=== PATIENT | male | born 1985 | race Caucasian/White ===

== ENCOUNTER 2018-01-04 19:59 | Emergency (ER) | payer SELFPAY ==
[2018-01-04] MEDS ORDERED: SODIUM CHLORIDE 0.9% 1000ML 1,000 ML IVS ONE (20:00)
[2018-01-04] MEDS ORDERED: SULFA/TRIMETH 800/160 (DS) TAB 1 EA TAB PO ONE (20:41)
[2018-01-04] MEDS ORDERED: TETANUS,DIPHTHERIA,PERTUSSIS 1 EA SYG IM ONE (20:41)
--- NOTE | 2018-01-04 20:45 | ED.PDOC ---
History of Present Illness - General Chief Complaint: Trauma Stated Complaint: LFA laceration Time Seen by Provider: 01/04/18 20:17 Source: patient Exam Limitations: no limitations - History of Present Illness Initial Comments: The patient is a 32-year-old male presenting to the emergency room secondary to lacerations longitudinally to the palmar aspect of his left forearm. He was working on his vehicle with his knife when it came down. The knife cut his forearm as he tried to drag his forearm out and cut him again. He has 2 lacerations: Approximately 8 inches in length. these do come through the scan but I cannot find that the knife actually went into any deeper tissue. He does appear to be neurovascularly intact. Radial artery pulses strong. Coloration of the hand is strong. Muscular function appears to be intact. Estimated blood loss per time of arrival was probably around 100 cc. He arrived with EMS with a pressure dressing. The incident occurred probably 45 minutes prior to arrival. Timing/Duration: 1/2 hour Severity: moderate Improving Factors: nothing Worsening Factors: nothing Associated Symptoms: denies symptoms Allergies/Adverse Reactions: Allergies NO KNOWN ALLERGY Allergy (Verified 01/04/18 20:29) Home Medications: Ambulatory Orders Sulfa/Trimeth 800/160 (Ds) Tab [Bactrim DS Tab] 1 ea PO DAILY #7 tab 01/04/18 Review of Systems - Review of Systems Constitutional: States: no symptoms reported EENTM: States: no symptoms reported Respiratory: States: no symptoms reported Cardiology: States: no symptoms reported Gastrointestinal/Abdominal: States: no symptoms reported Genitourinary: States: no symptoms reported Musculoskeletal: States: no symptoms reported Skin: States: see HPI Neurological: States: no symptoms reported Endocrine: States: no symptoms reported Past Medical History (General) - Patient Medical History Hx Seizures: No Hx Stroke: No Hx Dementia: No Hx Asthma: No Hx of COPD: No Hx Cardiac Disorders: No Hx Congestive Heart Failure: No Hx Pacemaker: No Hx Hypertension: No Hx Thyroid Disease: No Hx Diabetes: No Hx Gastroesophageal Reflux: No Hx Renal Disease: No Hx Cancer: No Hx of HIV: No Hx Hepatitis C: No Hx MRSA: No Surgical History: no surgical history - Vaccination History Hx Tetanus, Diphtheria Vaccination: No - Social History Hx Tobacco Use: No Hx Alcohol Use: No Hx Substance Use: No Hx Substance Use Treatment: No Hx Depression: No Family Medical History - Family History Father Living Status: Still Living Physical Exam - Physical Exam General Appearance: Alert, Other - he is diaphoretic. Eye Exam: bilateral normal Ears, Nose, Throat: hearing grossly normal, normal ENT inspection, normal pharynx Neck: full range of motion, supple Respiratory: lungs clear, normal breath sounds, no respiratory distress, no accessory muscle use Cardiovascular/Chest: normal peripheral pulses, regular rate, rhythm, no edema Peripheral Pulses: radial,right: 2+, radial,left: 2+, dorsalis pedis,right: 2+, dorsalis pedis,left: 2+ Gastrointestinal/Abdominal: non tender, soft Rectal Exam: deferred Back Exam: no CVA tenderness Extremity: normal range of motion, no pedal edema, normal capillary refill, other - see history of present illness Neurologic: mental health case manager II-XII nml as tested, no motor/sensory deficits, alert, normal mood/affect, oriented x 3 Skin Exam: normal color - lacerations as per history of present illness. Comments: Vital Signs - 24 hr 01/04/18 19:59 Temperature 98.0 F Pulse Rate [ 83 monitor] Respiratory 20 Rate Blood Pressure 96/48 [Right Arm] O2 Sat by Pulse 98 Oximetry Progress - Progress Progress: 01/04/18 20:45 the patient is a 32-year-old male presenting to the emergency room secondary to lacerations from a knife that occurred accidentally while repairing his truck, to his left forearm. no significant evidence of tendon disruption, neurological compromise or vascular compromise. Risk and benefits of repair were explained to patient and he agreed to proceed. The wounds were irrigated with approximately 700 cc of sterile saline. Hydrogen peroxide initially was used to remove dried blood. 1% lidocaine with epinephrine was used 8 cc for localized anesthetic. 14 simple sutures of 3-0 Ethilon were used for reapproximation. Good hemostasis was obtained. He does appear to be neurovascularly preserved. Sutures need to come out in 10 days. The patient was given a dose of Bactrim and will be placed on that daily for the next 7 days. He was also given a tetanus shot here today. ER warnings were given for any significant worsening. He should avoid flexion of the wrist for the next 3 days. After 24 hours he can wash the wound with an antibacterial soap and water 2-3 times daily. He can apply topical Neosporin ointment several times daily as well the help prevent drying of the edges of the laceration. Departure - Departure Clinical Impression: Accidental laceration Disposition: Discharge to Home or Self Care Condition: Fair Departure Forms: ED Discharge - Pt. Copy, Patient Portal Self Enrollment Diet: regular diet Activity: increase activity as tolerated Prescriptions: Sulfa/Trimeth 800/160 (Ds) Tab [Bactrim DS Tab] 1 ea PO DAILY #7 tab Home Medications: Ambulatory Orders Sulfa/Trimeth 800/160 (Ds) Tab [Bactrim DS Tab] 1 ea PO DAILY #7 tab 01/04/18 Additional Instructions: the patient is a 32-year-old male presenting to the emergency room secondary to lacerations from a knife that occurred accidentally while repairing his truck, to his left forearm. no significant evidence of tendon disruption, neurological compromise or vascular compromise. 14 simple sutures of 3-0 Ethilon were used for reapproximation. Sutures need to come out in 10 days. The patient was given a dose of Bactrim and will be placed on that daily for the next 7 days. He was also given a tetanus shot here today. ER warnings were given for any significant worsening. He should avoid flexion of the wrist for the next 3 days. After 24 hours he can wash the wound with an antibacterial soap and water 2-3 times daily. He can apply topical Neosporin ointment several times daily as well the help prevent drying of the edges of the laceration.
[2018-01-04 21:43] VITALS: BP 126/78; TEMP 98.2; O2SAT 99
== END 2018-01-04 21:45 | disposition home or self-care (01) ==
LOC: ER 19:59
DX: S51.812A Laceration without foreign body of left forearm, initial encounter (principal); Z23 Encounter for immunization; W26.0XXA Contact with knife, initial encounter
CPT/HCPCS: 90471; 90715; J7030